=== PATIENT | male | born 1945 | race Caucasian/White ===

== ENCOUNTER 2020-08-07 19:44 | Emergency (ER) | payer MEDICARE, BC ==
[2020-08-07] MEDS ORDERED: Sodium Chloride 0.9% 10 ML Syringe FLUSH PRN (20:08)
[2020-08-07] MEDS ORDERED: Aspirin 81 MG Tab.Chew PO ONE (20:10)
--- NOTE | 2020-08-07 20:15 | EDM.PDOC ---
ED HPI GENERAL MEDICAL PROBLEM - General Chief Complaint: Chest Pain Stated Complaint: CHEST PAIN Time Seen by Provider: 08/07/20 20:01 Source of Information: Reports: Patient, RN Notes Reviewed (Vital signs: Heart rate 72 bpm, temperature 97.6 F, respiratory rate 20 breaths/min, blood pressure 136/73, O2 sats 96% on room air.) History Limitations: Reports: No Limitations - History of Present Illness INITIAL COMMENTS - FREE TEXT/NARRATIVE: Patient is a 75-year-old male who presents to the ED for the evaluation of his chest pain. Patient notes roughly 1 hour prior to arrival, he started to have some mid central chest pain, that radiated to his left shoulder. He notes that he was checking on his son's house when it happened, he went home, laid down on the ground and try to stretch it out however nothing seems to be helping much. He denies any history of cardiac issues like OK, stents or otherwise. He has not had pain like this before. He denies any history of hypertension, or any sort of lung issues like COPD or asthma. He notes that the pain just hit him out of the blue and he characterizes it somewhat as a chest tightness. He has not had any fevers or chills, cough or shortness of breath, he states he could have been a little bit sweaty and pale when the pain initially hit him. His primary care provider is Dr. Jimenez. Chest Pain Score (Numeric/FACES): 9 - Related Data Allergies Allergy/AdvReac Type Severity Reaction Status Date / Time No Known Allergies Allergy Verified 08/07/20 19:52 Home Meds: Home Meds Aspirin [Halfprin] 1 tab PO DAILY 08/07/20 [History] Cyclobenzaprine [Flexeril] 10 mg PO DAILY 08/07/20 [History] Omeprazole 20 mg PO DAILY 08/07/20 [History] Pravastatin [Pravachol] 40 mg PO DAILY 08/07/20 [History] Past Medical History Gastrointestinal History: Reports: GERD - Past Surgical History Neurological Surgical History: Reports: Lumbar Spine Musculoskeletal Surgical History: Reports: Shoulder Surgery Social & Family History - Tobacco Use Tobacco Use Status *Q: Current Every Day Tobacco User Years of Tobacco use: 50 Packs/Tins Daily: 0.5 - Caffeine Use Caffeine Use: Reports: Coffee - Recreational Drug Use Recreational Drug Use: No ED ROS GENERAL - Review of Systems Review Of Systems: Comprehensive ROS is negative, except as noted in HPI. ED EXAM, GENERAL - Physical Exam Exam: See Below Exam Limited By: No Limitations General Appearance: Alert, WD/WN, No Apparent Distress Respiratory/Chest: No Respiratory Distress, Lungs Clear, Normal Breath Sounds, No Accessory Muscle Use, Chest Non-Tender Cardiovascular: Normal Peripheral Pulses, Regular Rate, Rhythm, No Edema Peripheral Pulses: 2+: Radial (L), Radial (R) Extremities: Normal Inspection, Normal Capillary Refill Neurological: Alert, Oriented, Normal Cognition, No Motor/Sensory Deficits Psychiatric: Normal Affect, Normal Mood Skin Exam: Warm, Dry, Intact, Normal Color, No Rash #1 Interpretation EKG Date: 08/07/20 Time: 19:47 Rhythm: NSR Rate (Beats/Min): 74 Lavinia: LAD-Left Lavinia Deviation P-Wave: Present QRS: Normal ST-T: Normal QT: Normal Comparison: NA - No Prior EKG EKG Interpretation Comments: No obvious ischemia or acute ST changes noted, reviewed by myself and Dr. Perea. Course - Vital Signs Last Recorded V/S: Last Vital Signs Temp 97.6 F 08/07/20 19:47 Pulse 72 08/07/20 19:47 Resp 20 08/07/20 19:47 BP 136/73 08/07/20 19:47 Pulse Ox 96 08/07/20 19:47 - Orders/Labs/Meds Orders: Active Orders 24 hr Category Date Time Status Peripheral IV Insertion Adult [OM.PC] Stat Oth 08/07/20 20:08 Ordered Labs: Laboratory Tests 08/07/20 08/07/20 08/07/20 Range/Units 19:48 19:48 19:48 WBC 10.12 H (4.23-9.07) K/mm3 RBC 4.95 (4.63-6.08) M/mm3 Hgb 15.1 (13.7-17.5) gm/dl Hct 45.6 (40.1-51.0) % MCV 92.1 (79.0-92.2) fl MCH 30.5 (25.7-32.2) pg MCHC 33.1 (32.2-35.5) g/dl RDW Std Deviation 46.4 H (35.1-43.9) fL Plt Count 302 (163-337) K/mm3 MPV 9.9 (9.4-12.3) fl Neut % (Auto) 61.2 (34.0-67.9) % Lymph % (Auto) 28.2 (21.8-53.1) % Crisp % (Auto) 8.6 (5.3-12.2) % Eos % (Auto) 1.4 (0.8-7.0) Baso % (Auto) 0.2 (0.1-1.2) % Neut # (Auto) 6.20 H (1.78-5.38) K/mm3 Lymph # (Auto) 2.85 (1.32-3.57) K/mm3 Crisp # (Auto) 0.87 H (0.30-0.82) K/mm3 Eos # (Auto) 0.14 (0.04-0.54) K/mm3 Baso # (Auto) 0.02 (0.01-0.08) K/mm3 PT 10.2 (9.7-12.0) SECONDS INR 0.95 APTT 22.8 (21.7-31.4) SECONDS D-Dimer, Quantitative (0.19-0.50) mg/L Sodium 139 (136-145) mEq/L Potassium 3.9 (3.5-5.1) mEq/L Chloride 102 (98-107) mEq/L Carbon Dioxide 26 (21-32) mEq/L Anion Gap 14.9 (5-15) BUN 18 (7-18) mg/dL Creatinine 1.3 (0.7-1.3) mg/dL Est Cr Clr Drug Dosing 55.55 mL/min Estimated GFR (MDRD) 54 (>60) mL/min BUN/Creatinine Ratio 13.8 L (14-18) Glucose 156 H (83-115) mg/dL Calcium 9.2 (8.5-10.1) mg/dL Magnesium (1.8-2.4) mg/dl Total Bilirubin 0.4 (0.2-1.0) mg/dL AST 17 (15-37) U/L ALT 30 (16-63) U/L Alkaline Phosphatase 187 H (46-116) U/L Troponin I < 0.017 (0.00-0.056) ng/mL NT-Pro-B Natriuret Pep (0-125) pg/mL Total Protein 7.5 (6.4-8.2) g/dl Albumin 3.7 (3.4-5.0) g/dl Globulin 3.8 gm/dL Albumin/Globulin Ratio 1.0 (1-2) Free T4 (0.76-1.46) ng/dL TSH 3rd Generation (0.358-3.74) uIU/mL Influenza Type A RNA (NEGATIVE) Influenza Type B RNA (NEGATIVE) SARS-CoV-2 RNA ([facility]) (NEGATIVE) 08/07/20 08/07/20 08/07/20 Range/Units 19:48 19:48 19:48 WBC (4.23-9.07) K/mm3 RBC (4.63-6.08) M/mm3 Hgb (13.7-17.5) gm/dl Hct (40.1-51.0) % MCV (79.0-92.2) fl MCH (25.7-32.2) pg MCHC (32.2-35.5) g/dl RDW Std Deviation (35.1-43.9) fL Plt Count (163-337) K/mm3 MPV (9.4-12.3) fl Neut % (Auto) (34.0-67.9) % Lymph % (Auto) (21.8-53.1) % Crisp % (Auto) (5.3-12.2) % Eos % (Auto) (0.8-7.0) Baso % (Auto) (0.1-1.2) % Neut # (Auto) (1.78-5.38) K/mm3 Lymph # (Auto) (1.32-3.57) K/mm3 Crisp # (Auto) (0.30-0.82) K/mm3 Eos # (Auto) (0.04-0.54) K/mm3 Baso # (Auto) (0.01-0.08) K/mm3 PT (9.7-12.0) SECONDS INR APTT (21.7-31.4) SECONDS D-Dimer, Quantitative 1.69 H (0.19-0.50) mg/L Sodium (136-145) mEq/L Potassium (3.5-5.1) mEq/L Chloride (98-107) mEq/L Carbon Dioxide (21-32) mEq/L Anion Gap (5-15) BUN (7-18) mg/dL Creatinine (0.7-1.3) mg/dL Est Cr Clr Drug Dosing mL/min Estimated GFR (MDRD) (>60) mL/min BUN/Creatinine Ratio (14-18) Glucose (83-115) mg/dL Calcium (8.5-10.1) mg/dL Magnesium 1.9 (1.8-2.4) mg/dl Total Bilirubin (0.2-1.0) mg/dL AST (15-37) U/L ALT (16-63) U/L Alkaline Phosphatase (46-116) U/L Troponin I (0.00-0.056) ng/mL NT-Pro-B Natriuret Pep 38 (0-125) pg/mL Total Protein (6.4-8.2) g/dl Albumin (3.4-5.0) g/dl Globulin gm/dL Albumin/Globulin Ratio (1-2) Free T4 (0.76-1.46) ng/dL TSH 3rd Generation (0.358-3.74) uIU/mL Influenza Type A RNA (NEGATIVE) Influenza Type B RNA (NEGATIVE) SARS-CoV-2 RNA ([facility]) (NEGATIVE) 08/07/20 08/07/20 08/07/20 Range/Units 19:48 20:32 22:27 WBC (4.23-9.07) K/mm3 RBC (4.63-6.08) M/mm3 Hgb (13.7-17.5) gm/dl Hct (40.1-51.0) % MCV (79.0-92.2) fl MCH (25.7-32.2) pg MCHC (32.2-35.5) g/dl RDW Std Deviation (35.1-43.9) fL Plt Count (163-337) K/mm3 MPV (9.4-12.3) fl Neut % (Auto) (34.0-67.9) % Lymph % (Auto) (21.8-53.1) % Crisp % (Auto) (5.3-12.2) % Eos % (Auto) (0.8-7.0) Baso % (Auto) (0.1-1.2) % Neut # (Auto) (1.78-5.38) K/mm3 Lymph # (Auto) (1.32-3.57) K/mm3 Crisp # (Auto) (0.30-0.82) K/mm3 Eos # (Auto) (0.04-0.54) K/mm3 Baso # (Auto) (0.01-0.08) K/mm3 PT (9.7-12.0) SECONDS INR APTT (21.7-31.4) SECONDS D-Dimer, Quantitative (0.19-0.50) mg/L Sodium (136-145) mEq/L Potassium (3.5-5.1) mEq/L Chloride (98-107) mEq/L Carbon Dioxide (21-32) mEq/L Anion Gap (5-15) BUN (7-18) mg/dL Creatinine (0.7-1.3) mg/dL Est Cr Clr Drug Dosing mL/min Estimated GFR (MDRD) (>60) mL/min BUN/Creatinine Ratio (14-18) Glucose (83-115) mg/dL Calcium (8.5-10.1) mg/dL Magnesium (1.8-2.4) mg/dl Total Bilirubin (0.2-1.0) mg/dL AST (15-37) U/L ALT (16-63) U/L Alkaline Phosphatase (46-116) U/L Troponin I 0.219 H* (0.00-0.056) ng/mL NT-Pro-B Natriuret Pep (0-125) pg/mL Total Protein (6.4-8.2) g/dl Albumin (3.4-5.0) g/dl Globulin gm/dL Albumin/Globulin Ratio (1-2) Free T4 1.21 (0.76-1.46) ng/dL TSH 3rd Generation 1.597 (0.358-3.74) uIU/mL Influenza Type A RNA Negative (NEGATIVE) Influenza Type B RNA Negative (NEGATIVE) SARS-CoV-2 RNA ([facility]) Negative (NEGATIVE) Meds: Medications Discontinued Medications Generic Name Dose Route Start Last Admin Trade Name Freq PRN Reason Stop Dose Admin Aspirin 324 mg 08/07/20 20:10 08/07/20 20:21 Aspirin PO 08/07/20 20:11 324 mg ONETIME ONE Administration Fentanyl 50 mcg 08/07/20 20:23 08/07/20 20:29 Sublimaze IVPUSH 08/07/20 20:24 50 mcg ONETIME ONE Administration Heparin Sodium (Porcine) 4,000 units 08/07/20 23:00 08/07/20 23:09 Heparin Sodium IVPUSH 08/07/20 23:01 4,000 units .BOLUS ONE Administration Hydromorphone HCl 1 mg 08/07/20 20:41 08/07/20 20:51 Dilaudid IVPUSH 08/07/20 20:42 1 mg ONETIME ONE Administration Hydromorphone HCl 1 mg 08/07/20 22:09 08/07/20 22:17 Dilaudid IVPUSH 08/07/20 22:10 1 mg ONETIME ONE Administration Sodium Chloride 100 mls @ 60 mls/hr 08/07/20 20:45 08/07/20 21:12 Normal Saline IV 60 mls/hr ASDIRECTED JOSSIE Administration Heparin Sodium/Dextrose 25,000 units in 500 mls @ 21.664 mls/hr 08/07/20 23:00 08/07/20 23:11 Heparin 25,000 Units In D5w 500 Ml IV 12 units/kg/hr TITRATE JOSSIE 21.664 mls/hr Administration Protocol 12 UNITS/KG/HR Iopamidol 100 ml 08/07/20 20:44 08/07/20 21:11 Isovue-370 (76%) IVPUSH 08/07/20 20:45 100 ml ONETIME ONE Administration Sodium Chloride 10 ml 08/07/20 20:08 08/07/20 20:21 Saline Flush FLUSH 10 ml ASDIRECTED PRN Administration Keep Vein Open Sodium Chloride 10 ml 08/07/20 20:45 08/07/20 21:12 Saline Flush FLUSH 10 ml ASDIRECTED JOSSIE Administration - Re-Assessments/Exams Free Text/Narrative Re-Assessment/Exam: 08/07/20 20:15 Patient presents to the ED for his mid central chest pain with radiation to his left shoulder blade. EKG done at time of triage demonstrates minimal ST depression in the inferior leads however there is no obvious sign of any sort of ST abnormality. Patient did not take any medications at home, will go ahead and give him 324 mg aspirin for initial management, baseline labs were taken by triage nurse, get a chest x-ray for evaluation. Patient will likely need to stay in this ER for 3-hour troponin rule out due to the nature of his pain. 08/07/20 20:23 Was made aware by nursing staff that the patient's pain has returned, will go ahead and give him 50 mcg of fentanyl for pain management. 08/07/20 20:26 Was made aware by nursing staff patient's D-dimer is elevated at 1.69. 08/07/20 21:26 The patient's COVID-19 screen did come back negative at today's visit. CTA has been performed but the official read is still pending at this time. 08/07/20 22:33 The CTA did demonstrate no acute evidence of pulmonary embolus. There is an ectatic ascending thoracic aorta measuring 4.5 cm in diameter. There is a enlarged heterogenous thyroid suggesting multinodular goiter, there is mildly enlarged medialis and a lymph nodes with the largest being a precarinal node measuring 1.7 cm in diameter. Enlarged right hilar node measuring 1.8 cm in diameter. 08/07/20 22:40 I did talk with the cardiothoracic surgeon operations research engineer regarding CTA results and he does state that would be amenable to admit the patient for observation and do an echocardiogram in the morning however our hospitalist did not feel comfortable performing this at this facility and suggest transfer to higher level of care. I did talk with Dr. Fenton at in [place] and she does ultimately accept the patient in transfer. 08/07/20 23:01 The patient's second troponin is now 0.219. I will be in contact with to update them as this appears to be a non-STEMI. Heparin bolus has been given and a drip will be started. Departure - Departure Time of Disposition: 22:44 Disposition: DC/Tfer to Acute Hospital 02 Reason for Transfer *Q: Other (NSTEMI) Condition: Good Clinical Impression: NSTEMI (non-ST elevated myocardial infarction) Chest pain Qualifiers: Chest pain type: unspecified Qualified Code(s): R07.9 - Chest pain, unspecified Referrals: PCP,Unknown [Ordering Only Provider] - Forms: ED Department Discharge Sepsis Event Note (ED) - Evaluation Sepsis Screening Result: No Definite Risk - My Orders Last 24 Hours: My Active Orders 08/07/20 20:08 Peripheral IV Insertion Adult [OM.PC] Stat - Assessment/Plan Last 24 Hours: My Active Orders 08/07/20 20:08 Peripheral IV Insertion Adult [OM.PC] Stat
[2020-08-07] MEDS ORDERED: fentaNYL 100 MCG/2 ML SDV IVPUSH ONE (20:23)
[2020-08-07] MEDS ORDERED: HYDROmorphone 1 MG/ML Syringe IVPUSH ONE ×2 (20:41→22:09)
[2020-08-07] MEDS ORDERED: Iopamidol 755 Mg/ML 100 ML Bottle IVPUSH ONE (20:44)
[2020-08-07] MEDS ORDERED: Sodium Chloride 0.9% 10 ML Syringe FLUSH SCH (20:45)
[2020-08-07] MEDS ORDERED: Sodium Chloride 0.9% 100 ML IV SCH (20:45)
[2020-08-07 21:13] LABS: CORONAVIRUS COVID-19 NAA NEGATIVE (NEGATIVE)
[2020-08-07] MEDS ORDERED: Heparin Sodium 5,000 Units/ML Vial IVPUSH ONE (23:00)
[2020-08-07] MEDS ORDERED: Heparin Sodium/D5W 25,000 UNITS/500 ML BAG IV SCH (23:00)
--- NOTE | 2020-08-08 08:29 | CR ---
Chest: Portable view of the chest is obtained. Comparison: Subsequent chest CT performed later on the same day. Slight parenchymal density within the right lung base and left midlung are seen. Lungs otherwise are clear. Heart size is normal. Tortuous thoracic aorta is noted. No acute osseous finding is seen. Impression: 1. Slight areas of parenchymal density as noted above. 2. Nothing acute is otherwise seen. Diagnostic code #3
--- NOTE | 2020-08-08 08:33 | CT ---
CT chest Technique: Multiple axial sections were obtained to the chest as a pulmonary angiogram protocol. Intravenous contrast was utilized. Findings: Slightly ectatic ascending aorta at 4.0 cm. Descending aorta is mildly ectatic at 3.0 cm. These findings are stable from prior CT exam. Scattered mediastinal lymph nodes are seen. Largest lymph node measures about 1.7 cm. Lymph nodes are questionably more prominent than on prior study although current exam is at thinner sections. Coronary artery calcification seen. No pericardial thickening is identified. Pulmonary arteries are well opacified. No filling defects are seen to indicate pulmonary embolism. Visualized upper abdominal structures show a partially visualized cyst within the left kidney. This cyst measures approximately 2.3 cm. Mild ectasia is noted of the upper abdominal aorta at 3.3 cm in AP dimension. Diffuse emphysematous changes are seen on lung window settings. Increased density is noted posteriorly within both lung bases which is slightly more prominent on prior exam most likely representing areas of increased fibrosis. No definite acute parenchymal change is seen. Small nodule is noted within the left upper lung which appears to be an interval change from previous chest CT. This nodule is noncalcified and measures about 6 mm in size. Small nodule is also noted within the right middle lobe which measures 7 mm in size. This finding is partially seen on prior study measuring about 4 mm in size. No additional nodules are appreciated. Thyroid gland is enlarged showing multiple poorly enhancing nodules most likely due to multinodular goiter. Bone window settings were reviewed which show mild degenerative change scattered within the spine. No acute osseous abnormality is appreciated. Impression: 1. No findings of pulmonary embolism. 2. Slightly prominent mediastinal lymph nodes. Most of these are seen on prior exam and changes may relate to differences in technique. 3. New 6 mm nodule within the left upper lung. Recommend repeat chest CT study without contrast in 9 months to further evaluate. This follow-up study would occur in May,. 4. Increasing density within both posterior lung bases most likely representing increasing fibrosis. 5. Emphysematous change. 6. Stable multinodular goiter. Diagnostic code #9 I mostly agree with preliminary report from [facility] (recommendation as noted above), finalized on 08/07/20, 10:30 PM MONITOR TECH
== END 2020-08-07 23:24 ==
LOC: JD.ED 19:44
DX: I21.4 Non-ST elevation (NSTEMI) myocardial infarction (principal); K21.9 Gastro-esophageal reflux disease without esophagitis; Z79.82 Long term (current) use of aspirin; Z79.899 Other long term (current) drug therapy; Z72.0 Tobacco use; Z20.822 Contact with and (suspected) exposure to COVID-19
CPT/HCPCS: 0240U; 36415; 71045; 71275; 80053; 83735; 83880; 84439; 84443; 84484; 85025; 85379; 85610; 85730; 93005; 96374; 96375; 96376; 99285; A9270; J1170; J1644; J3010; Q9967; 93010